=== PATIENT | female | born 1970 | race African-American/Black ===

== ENCOUNTER 2019-02-22 17:22 | Inpatient (IN) | payer MEDICAID, OTHER ==
[~2019-02-22] VITALS: Ht 160 cm; Wt 87.5 kg
[2019-02-22 17:38] VITALS: BP 157/98
[2019-02-22 18:24] LABS: BASOPHILS % (AUTO) 0.8 % (0.0-2.0); EOSINOPHILS # (AUTO) 0.3 K/uL (0-0.4); EOSINOPHILS % (AUTO) 5.3 % (0.0-4.0); HEMATOCRIT 36.9 % (36-48); HEMOGLOBIN 11.8 g/dL (12.0-16.0); LYMPHOCYTES % (AUTO) 32.7 % (20.5-51.1); MEAN CORPUSCULAR HEMOGLOBIN 28 pg (27-31); MEAN CORPUSCULAR HGB CONC 32 g/dL (33-37); MEAN CORPUSCULAR VOLUME 86.2 fL (80-94); MONOCYTES # (AUTO) 0.6 K/uL (0.8-1.0); MONOCYTES % (AUTO) 9.6 % (1.7-9.3); NEUTROPHILS # (AUTO) 3.2 K/uL (1.8-7.7); NEUTROPHILS % (AUTO) 51.6 % (42.2-75.2); PLATELET COUNT (AUTO) 304 K/uL (140-450); RED BLOOD CELL COUNT(AUTO) 4.27 MIL/uL (4.20-5.40); WHITE BLOOD COUNT (AUTO) 6.2 K/uL (4.8-10.8)
[2019-02-22 18:40] LABS: ALBUMIN 3.3 g/dL (3.4-5.0); ANION GAP 14.9 (8-16); CARBON DIOXIDE 27.2 mmol/L (21-32); CREATININE 1.1 mg/dL (0.6-1.3); POTASSIUM 4.1 mmol/L (3.5-5.1); TOTAL BILIRUBIN 0.1 mg/dL (0.0-1.0)
--- NOTE | 2019-02-22 19:38 | NUR ---
PT AMBULATED TO BED #11 Addendum: 02/22/19 at 1938 by [email or web address] PT AMBULATED TO BED #12
--- NOTE | 2019-02-22 19:49 | NUR ---
FIRST CONTACT WITH PATIENT PATIENT AMBULATED TO BED 12, WTIH STEADY GAIT, C/O ABD PAIN X 1 WEEK, +N/V NO DIARRHEA; PATIENT STATES "PAIN IS EPIGASTRIC REGION BUT DOES NOT BURN" PATIENT STATES SHE HAS HX OF FIBROIDS REMOVED AT [facility], [place] 07/2018, FROM UTERUS AND CHOLECYSTECTOMY 3-4 YEARS AGO. PATIENT GCS 15, AAOX4, NO ACUTE DISTRESS NOTED, WILL CONTINUE TO MONITOR
[2019-02-22 20:13] LABS: APPEARANCE,URINE CLEAR (CLEAR); BILIRUBIN,URINE NEGATIVE (NEGATIVE); BLOOD, URINE NEGATIVE (NEGATIVE); COLOR,URINE YELLOW (YELLOW); LEUKOCYTE ESTERASE ,URINE NEGATIVE (NEGATIVE); NITRITE, URINE NEGATIVE (NEGATIVE); UGLUCOSE NEGATIVE (NEGATIVE)
[2019-02-22] MEDS ORDERED: LIDOCAINE VISCOUS 2% 20 ML UDC PO ONE (21:40)
[2019-02-22] MEDS ORDERED: ALUMINUM HYD/MAG/SIMETHICONE 30 ML UDC PO ONE (21:40)
--- NOTE | 2019-02-22 21:59 | NUR ---
RT AT BEDSIDE
--- NOTE | 2019-02-22 23:01 | NUR ---
PATIENT LEFT FOR CT
--- NOTE | 2019-02-23 00:15 | NUR ---
PATIENT CURRENTLY RESTING IN GURNEY, IN POSITION OF COMFORT. PATIENT GCS 15, AAOX4, BREATHING IS EVEN AND UNLABORED, EQUAL RISE AND FALL OF CHEST, NO ACUTE DISTRESS NOTED. PATIENT UPDATED WITH PLAN OF CARE, WILL CONTINUE TO MONITOR
--- NOTE | 2019-02-23 00:20 | NUR ---
SPOKE TO KIRT FARIAS TO ADMIT FOR OBSERVATION
[2019-02-23] MEDS ORDERED: MORPHINE SULFATE 2 MG/ML SYR IVP PRN ×2 (00:45→01:45)
[2019-02-23] MEDS ORDERED: HYDROcodone/APAP 7.5/325 MG 1 TAB PO PRN (00:45)
[2019-02-23] MEDS ORDERED: ACETAMINOPHEN 325 MG TAB PO PRN (00:45)
[2019-02-23] MEDS ORDERED: ONDANSETRON 4 MG/2 ML VIAL IM/IVP PRN (00:45)
[2019-02-23] MEDS ORDERED: DOCUSATE SODIUM 100 MG GELCAP PO PRN (00:45)
[2019-02-23] MEDS ORDERED: DEXT 5% /NACL 0.9% 1,000 ML IV ONE (00:50)
[2019-02-23 01:21] LABS: BARBITURATE, URINE NEG. ng/ml (NEG <=200); BENZODIAZEPINE, URINE NEG. ng/mL (NEG <=200); CANNABINOID, URINE NEG. ng/mL (NEG <=50); COCAINE, URINE NEG. ng/mL (NEG <=300); OPIATE, URINE POS. ng/mL (NEG <=2000); PHENCYCLIDINE SCREEN,URINE NEG. ng/mL (NEG <=25)
[2019-02-23] MEDS ORDERED: KETOROLAC 15 MG/ML VIAL IVP ONE (01:40)
[2019-02-23 01:50] LABS: PROTHROMBIN TIME 9.6 secs (10.8-13.4)
--- NOTE | 2019-02-23 01:50 | NUR ---
PT ARRIVED IN UNIT VIA WHEELCHAIR, PT ABLE TO AMBULATE TO BED, TOLERATED WELL, NO DISTRESS NOTED, RECEIVED BEDSIDE REPORT FROM ED NURSE QUANG RN, PT STABLE, IV TO L HAND 22G PATENT, INTACT, SL, DATED, V/S TAKEN, WNL, ORIENT PT TO BED, CALL LIGHT AND ROOM, PT STATED UNDERSTANDING, MRSA SWAB TAKEN, INITIAL ASSESSMENT DONE, ALL SAFETY PRECAUTION MET, CALL LIGHT WITHIN REACH, WILL CONTINUE TO MONITOR.
--- NOTE | 2019-02-23 01:55 | NUR ---
Patient will be admitted to care of [facility]. Admited to MS. Will go to room 123A. Belongings list completed. Report to JAYA FITZPATRICK.
[2019-02-23 01:57] LABS: CHOL/HDL RATIO 2.8 (1-4.5); FREE T4 (FREE THYROXINE) 0.88 ng/dL (0.76-1.46); MAGNESIUM 2.1 mg/dL (1.8-2.4); PHOSPHORUS 3.2 mg/dL (2.5-4.9)
[2019-02-23 02:00] VITALS: BP 147/97
--- NOTE | 2019-02-23 02:12 | NUR ---
PT C/O PAIN, TORADOL ORDERED ADMINISTERED, PT TOLERATED WELL, IVF D5NS STARTED AT 140ML/HR, INFUSING WELL, NO DISTRESS NOTED, CALL LIGHT WITHIN REACH, WILL CONTINUE TO MONITOR.
--- NOTE | 2019-02-23 04:04 | NUR ---
CHECKED ON PT, PT SLEEPING, NO DISTRESS NOTED, CALL LIGHT WITHIN REACH, WILL CONTINUE TO MONITOR.
--- NOTE | 2019-02-23 07:12 | NUR ---
ENDORSED PT TO DAY SHIFT NURSE TRACEY FITZPATRICK, PT STABLE, NO DISTRESS NOTED, CALL LIGHT WITHIN REACH.
--- NOTE | 2019-02-23 07:15 | NUR ---
RECEIVED PT FROM HEALTH TECH NURSE, JAYA , PT IS AWAKE AND LYING ON THE BED, WITH SIDE RAILS UP AND CALL LIGHT WITHIN REACH, PT HAS AN IV LINE ON THE LEFT HAND G. 22 WITH D5NS INFUSING AT 140ML. HR, PT IS ON OBSERVATION AND WAS PLACED ON NPO EXCEPT MEDS, PT VERBALIZED A PAIN RATE OF 9/10 AND SAID THAT THE PAIN MEDICATIONS SHE RECEIVED DID NOT HELP AT ALL WITH THE PAIN, WILL MEDICATE AND MONITOR PT.
[2019-02-23 07:34] LABS: ANION GAP 12.8 (8-16); CARBON DIOXIDE 24.9 mmol/L (21-32); CREATININE 0.9 mg/dL (0.6-1.3); POTASSIUM 3.7 mmol/L (3.5-5.1)
[2019-02-23 07:40] LABS: BASOPHILS % (AUTO) 0.7 % (0.0-2.0); EOSINOPHILS # (AUTO) 0.3 K/uL (0-0.4); EOSINOPHILS % (AUTO) 6.2 % (0.0-4.0); HEMATOCRIT 35.3 % (36-48); HEMOGLOBIN 11.5 g/dL (12.0-16.0); LYMPHOCYTES # (AUTO) 1.7 K/uL (2.5-16.5); LYMPHOCYTES % (AUTO) 35.9 % (20.5-51.1); MEAN CORPUSCULAR HEMOGLOBIN 28 pg (27-31); MEAN CORPUSCULAR HGB CONC 33 g/dL (33-37); MEAN CORPUSCULAR VOLUME 86.7 fL (80-94); MONOCYTES # (AUTO) 0.5 K/uL (0.8-1.0); MONOCYTES % (AUTO) 11.4 % (1.7-9.3); NEUTROPHILS # (AUTO) 2.2 K/uL (1.8-7.7); NEUTROPHILS % (AUTO) 45.8 % (42.2-75.2); PLATELET COUNT (AUTO) 283 K/uL (140-450); RED BLOOD CELL COUNT(AUTO) 4.07 MIL/uL (4.20-5.40); WHITE BLOOD COUNT (AUTO) 4.7 K/uL (4.8-10.8)
[2019-02-23 08:00] VITALS: BP 11/106
--- NOTE | 2019-02-23 08:23 | NUR ---
PATIENT HAS BEEN SCREENED AND CATEGORIZED MODERATE NUTRITION RISK. PATIENT WILL BE SEEN WITHIN 3-5 DAYS OF ADMISSION. 02/26/[address]
[2019-02-23] MEDS ORDERED: HYDROCHLOROTHIAZIDE 25 MG TAB PO SCH (09:00)
--- NOTE | 2019-02-23 09:31 | NUR ---
IVF WAS FINISHED NOW.
--- NOTE | 2019-02-23 09:35 | NUR ---
ANOTHER BAG IG D5 NS IVF WAS STARTED TO PT NOW.
[2019-02-23] MEDS: amLODIPine 5 MG TAB PO SCH (09:40)
--- NOTE | 2019-02-23 09:45 | NUR ---
PT IS AWAKE AND VITAL SIGNS CHECKED, BP IS 147/101, PULSE IS 92, O2 SATURATION IS 98%, ORAL MEDICATIONS WERE GIVEN AND PT TOLERATED IT, PT VERBALIZED A PAIN RATE OF 10/10 AND PAIN MEDICATION WAS ALSO GIVEN. WILL RE-ASSESS AND MONITOR PT.
[2019-02-23] MEDS ORDERED: SIMETHICONE 80 MG TAB.CHEW PO SCH (10:52)
--- NOTE | 2019-02-23 11:59 | NUR ---
PT IS AWAKE AND LYING ON THE BED, ORAL MEDICATION WAS GIVEN AND PT TOLERATED IT. NO SIGN OF DISTRESS NOTED AND WILL MONITOR PT.
[2019-02-23] MEDS: DEXT 5% / NACL 0.45% 1,000 ML IV SCH ×2 (12:47→18:28)
[2019-02-23] MEDS: MORPHINE SULFATE 2 MG/ML SYR IVP PRN (14:29)
--- NOTE | 2019-02-23 14:39 | NUR ---
PT IS CRYING AND IS IN PAIN OF A 10/10, VITAL SIGNS CHECKED AND BP IS 160/105, PULSE IS 100 AND O2 SATURATION IS 100% , PAIN MEDICATION WAS GIVEN VIA IV PUSH AND PT TOLERATED IT, WILL RE-ASSESS PAIN .
--- NOTE | 2019-02-23 15:13 | NUR ---
PT IS AWAKE AND VERBALIZED ITCHINESS AND ASKED FOR BENADRYL, MEDICATION WAS GIVEN AND PT TOLERATED IT. NO SIGN OF DISTRESS NOTED AND WILL CONTINUE TO MONITOR PT.
[2019-02-23 16:00] VITALS: BP 156/108
[2019-02-23] MEDS: KETOROLAC 15 MG/ML VIAL IVP PRN (18:17)
--- NOTE | 2019-02-23 18:26 | NUR ---
PT'S IVF OD D5NS WAS FINISHED NOW, 990 ML WAS INFUSED TO PT.
--- NOTE | 2019-02-23 18:28 | NUR ---
PT WAS STARTED ON IVF OF D5 1/2 NS AT A RATE OF 150ML/HR.
--- NOTE | 2019-02-23 19:10 | NUR ---
DR. TIRADO WAS AT PT'S BEDSIDE, ROUNDS DONE. FOR EGD
--- NOTE | 2019-02-23 19:15 | NUR ---
ENDORSED PT TO ESCROW ASSISTANT NURSEJOHN FOR CONTINUITY OF CARE, PT IS LYING ON THE BED AND IS STABLE AT THIS TIME.
--- NOTE | 2019-02-23 19:16 | NUR ---
RECEIVED PT FROM AM SHIFT NURSE, PT IS AWAKE, A ,0 X 4 AND SITTING ON THE BED, PT HAS AN IV LINE ON THE LEFT HAND G. 22 WITH D5NS INFUSING AT 140ML. HR, PT IS ON OBSERVATION AND WAS PLACED ON NPO EXCEPT MEDS, WITH SIDE RAILS UP AND CALL LIGHT WITHIN REACH.
--- NOTE | 2019-02-23 19:20 | NUR ---
ADJUSTED RATE OF CURRENT IVF TO 70 ML/HR ORDERED
--- NOTE | 2019-02-23 20:09 | NUR ---
INFORMED DR. VELÁZQUEZ THAT BP 167/96, HR 84 WILL CONTINUE TO MONITOR AWAITING ORDERS
[2019-02-23] MEDS ORDERED: traZODone 50 MG TAB PO SCH (21:00)
[2019-02-23] MEDS: AMITRIPTYLINE 25 MG TAB PO SCH (21:08)
[2019-02-23] MEDS: LACTULOSE 20 GM/30 ML UDC PO SCH (21:08)
--- NOTE | 2019-02-23 21:08 | NUR ---
MEDICATED PT WITH MEDS ORDERED. WILL CONTINUE TO MONITOR FOR EMOTIONAL LABILITY.
--- NOTE | 2019-02-23 21:18 | NUR ---
EGD CONSENT SECURED FROM PATIENT, SIGNED. SIGNED BY DR. VELÁZQUEZ
[2019-02-24] VITALS: BP 167/96
--- NOTE | 2019-02-24 | NUR ---
PT BP WENT DOWN TO 139/ 88, HR 88, WILL CONTINUE TO MONITOR
--- NOTE | 2019-02-24 01:58 | NUR ---
FREQUENT ROUNDING DONE, PT SLEEPING NOW, NO EPISODES OF CRYING AT THIS TIME
--- NOTE | 2019-02-24 04:05 | NUR ---
IVF CHANGED Addendum: 02/24/19 at 0406 by Jenny Graves RN IVF CHANGED, END TIME OF 0404 AM ADMINISTERED TOTAL 800 MG.
[2019-02-24] MEDS: DEXT 5% / NACL 0.45% 1,000 ML IV SCH ×2 (04:08→14:22)
[2019-02-24] MEDS: KETOROLAC 15 MG/ML VIAL IVP PRN (05:22)
--- NOTE | 2019-02-24 06:58 | NUR ---
PT AWAKE, IN BED. PT IN STABLE CONDITION, WILL ENDORSE FOR CONTINUITY OF CARE Addendum: 02/24/19 at 0659 by Jenny Graves RN FOR EGD TODAY
--- NOTE | 2019-02-24 07:20 | NUR ---
RECEIVED PT FROM DIABETOLOGIST NURSEJOHN, PT IS AWAKE AND LYING ON THE BED WITH SIDE RAILS UP AND CALL LIGHT WITHIN REACH, PT HAS AN IV LINE ON THE LEFT HAND G. 22 WITH D51/2 NS INFUSING AT 70ML/HR, INTACT. PT IS SCHEDULED FOR AN EGD TODAY, SCHEDULE NOT POSTED YET ON OR DESK TOP. NO SIGN OF DISTRESS NOTED AND WILL CONTINUE TO MONITOR PT.
[2019-02-24 08:00] VITALS: BP 151/105
--- NOTE | 2019-02-24 08:00 | NUR ---
PT IS AWAKE AND VITAL SIGNS CHECKED DONE, BP IS 151/105,PULSE IS 83, O2 SATURATION IS 100%, TEMPERATURE IS 97.4 and RESPIRATION IS EVEN AT A RATE OF 18/MIN. NO SIGN OF DISTRESS NOTED AND WILL MONITOR PT.
[2019-02-24] MEDS ORDERED: HYDROCHLOROTHIAZIDE 25 MG TAB PO SCH (09:00)
[2019-02-24] MEDS: LACTULOSE 20 GM/30 ML UDC PO SCH ×3 (10:00→18:12)
[2019-02-24] MEDS: amLODIPine 5 MG TAB PO SCH (10:01)
[2019-02-24] MEDS: SENNA 8.6 MG TAB PO SCH ×3 (10:01→18:13)
[2019-02-24] MEDS: HYDROcodone/APAP 7.5/325 MG 1 TAB PO PRN (10:03)
--- NOTE | 2019-02-24 10:03 | NUR ---
PT IS AWAKE AND VERBALIZED A PAIN RATE OF 7/10, VITAL SIGNS CHECKED AND BP IS 135/88, PULSE IS83, O2 SATURATION IS 98%, ORAL MEDICATIONS WERE GIVEN AND PT TOLERATED LIT. NO SIGN OF DISTRESS NOTED AND WILL MONITOR R PT.
--- NOTE | 2019-02-24 12:00 | NUR ---
PT IS OFF THE UNIT NOW FOR EGD
[2019-02-24] MEDS ORDERED: fentaNYL 0.05 MG/ML VIAL ONE (12:05)
[2019-02-24] MEDS ORDERED: MIDAZOLAM 2 MG/2 ML VIAL ONE (12:06)
[2019-02-24] MEDS ORDERED: diphenhydrAMINE 50 MG/ML VIAL ONE (12:06)
[2019-02-24] MEDS ORDERED: MAGNESIUM CITRATE 300 ML BTL PO SCH (12:38)
--- NOTE | 2019-02-24 12:40 | NUR ---
PT BACK TO ROOM NOW FROM EGD PROCEDURE.
[2019-02-24] MEDS ORDERED: fentaNYL 0.05 MG/ML VIAL IVP ONE (13:05)
[2019-02-24] MEDS ORDERED: MIDAZOLAM 2 MG/2 ML VIAL IVP ONE (13:05)
[2019-02-24] MEDS ORDERED: FUROSEMIDE 20 MG/2 ML VIAL IVP SCH (13:30)
--- NOTE | 2019-02-24 14:22 | NUR ---
PT'S IVF OF D5 1/2 NS WAS ENDED AND PT WAS STARTED ON A NEW BAG OF D51/2 NS AT A RATE OF 20ML/HR NOW
[2019-02-24 14:25] LABS: BASOPHILS % (AUTO) 0.7 % (0.0-2.0); EOSINOPHILS # (AUTO) 0.3 K/uL (0-0.4); EOSINOPHILS % (AUTO) 5.3 % (0.0-4.0); HEMATOCRIT 35.8 % (36-48); HEMOGLOBIN 11.8 g/dL (12.0-16.0); LYMPHOCYTES # (AUTO) 1.6 K/uL (2.5-16.5); LYMPHOCYTES % (AUTO) 27.4 % (20.5-51.1); MEAN CORPUSCULAR HEMOGLOBIN 28 pg (27-31); MEAN CORPUSCULAR HGB CONC 33 g/dL (33-37); MEAN CORPUSCULAR VOLUME 85.5 fL (80-94); MONOCYTES # (AUTO) 0.4 K/uL (0.8-1.0); MONOCYTES % (AUTO) 7.8 % (1.7-9.3); NEUTROPHILS # (AUTO) 3.4 K/uL (1.8-7.7); NEUTROPHILS % (AUTO) 58.8 % (42.2-75.2); PLATELET COUNT (AUTO) 288 K/uL (140-450); RED BLOOD CELL COUNT(AUTO) 4.19 MIL/uL (4.20-5.40); RED CELL DISTRIBUTION WIDTH 14.9 % (11.6-13.7); WHITE BLOOD COUNT (AUTO) 5.8 K/uL (4.8-10.8)
[2019-02-24 14:41] LABS: ANION GAP 13.3 (8-16); CARBON DIOXIDE 23.2 mmol/L (21-32); CREATININE 0.8 mg/dL (0.6-1.3); POTASSIUM 3.5 mmol/L (3.5-5.1)
[2019-02-24 14:45] LABS: MAGNESIUM 2.2 mg/dL (1.8-2.4)
[2019-02-24] MEDS ORDERED: amLODIPine 5 MG TAB PO SCH (15:00)
--- NOTE | 2019-02-24 15:15 | NUR ---
PT IS AWAKE AND DAUGHTERS ON THE BEDSIDE, ORAL AND IV MEDICATIONS WERE GIVEN AND PT TOLERATED IT. NO SIGN OF DISTRESS NOTED AND WILL MONITOR PT.
--- NOTE | 2019-02-24 15:22 | NUR ---
PT IS HAVING THE FEELING OF NAUSEA AND VOMITED ONCE, ASKED FOR ZOFRAN AND WAS GIVEN VIA IV PUSH. WILL MONITOR PT.
[2019-02-24 16:00] VITALS: BP 124/84
[2019-02-24] MEDS ORDERED: metroNIDAZOLE 500 MG TAB PO SCH (17:00)
[2019-02-24] MEDS ORDERED: BISMUTH SUBSALICYLATE 15 ML UDBTL PO SCH (17:00)
[2019-02-24] MEDS ORDERED: TETRACYCLINE 250 MG PO SCH (17:00)
--- NOTE | 2019-02-24 19:15 | NUR ---
ENDORSED PT TO PARTS DELIVERY DRIVER NURSEJOHN FOR CONTINUITY OF CARE. PT IS STABLE AT THIS TIME.
--- NOTE | 2019-02-24 19:16 | NUR ---
RECEIVED PT FROM AM SHIFT. PT AWAKE, ALERT, O X 4. PT LYING IN BED.WITH IV LINE ON THE LEFT HAND G. 22 WITH D5 1/2 NS INFUSING AT 70ML/HR, INTACT. NO SIGNS OF DISTRESS NOTED. WILL CONTINUE TO MONITOR PT AND CALL LIGHT WITHIN REACH.
[2019-02-24 20:00] VITALS: BP 114/84
[2019-02-24] MEDS: metroNIDAZOLE 500 MG TAB PO SCH (20:38)
[2019-02-24] MEDS: AMOXICILLIN 500 MG CAP PO SCH (20:38)
[2019-02-24] MEDS: MORPHINE SULFATE 2 MG/ML SYR IVP PRN (20:38)
--- NOTE | 2019-02-24 20:38 | NUR ---
PT C/O 08/26 PAIN ON ABDOMEN AND WELL CRAMPING, INFORMED HER THAT WE GAVE HER THIS AM STOOL SOFTENERS AND MIGHT BE THE CAUSE OF THE CRAMPLING PAIN. PT UNDERSTOOD,THAT SHE HAS TO GO TO THE BATHROOM TO RELIEVE THE CRAMPING PAIN.
[2019-02-24] MEDS: PANTOPRAZOLE 40 MG TABEC PO SCH (20:39)
[2019-02-24] MEDS: CLARITHROMYCIN 500 MG TAB PO SCH (20:39)
[2019-02-24] MEDS: AMITRIPTYLINE 25 MG TAB PO SCH (20:39)
[2019-02-24] MEDS ORDERED: CLARITHROMYCIN 500 MG TAB PO SCH (21:00)
--- NOTE | 2019-02-24 22:00 | NUR ---
PT WENT TO THE BATHROOM, PASSING OUT GAS ONLY. NO BM YET NOTED.
--- NOTE | 2019-02-24 23:05 | NUR ---
FREQUENT ROUNDING DONE PT IN BED TRYING TO SLEEP, NO DISTRESS NOTED AT THIS TIME.
--- NOTE | 2019-02-24 23:48 | NUR ---
CHECKED ON PT, W/ SOME BM X 1. CLEANED.
--- NOTE | 2019-02-25 03:31 | NUR ---
PT WENT TO BATHROOM, HAD ANOTHER BM,MINIMAL AMOUNT, WET.
--- NOTE | 2019-02-25 03:45 | NUR ---
PT WENT TO BATHROOM BM NOTED MODERATE IN AMOUNT, YELLOWISH, LIQUID STOOL.
[2019-02-25 04:00] VITALS: BP 113/63
[2019-02-25] MEDS: HYDROcodone/APAP 7.5/325 MG 1 TAB PO PRN (04:58)
--- NOTE | 2019-02-25 06:23 | NUR ---
PT IV INFILTRATED, INSERTED A NEW LINE ON RIGHT HAND G 24, PATENT AND INTACT
[2019-02-25] MEDS ORDERED: AMOX500C25 PO (06:33)
[2019-02-25] MEDS ORDERED: METR500T1 PO (06:33)
[2019-02-25] MEDS ORDERED: AMLO5TAB PO (06:33)
[2019-02-25] MEDS ORDERED: LACT1.4C PO (06:33)
[2019-02-25] MEDS ORDERED: PANT40EC28 PO (06:33)
[2019-02-25] MEDS ORDERED: CLAR500T PO (06:33)
[2019-02-25] MEDS ORDERED: ORE25 PO (06:33)
[2019-02-25 06:47] LABS: ANION GAP 13.2 (8-16); CARBON DIOXIDE 25.2 mmol/L (21-32); CREATININE 0.8 mg/dL (0.6-1.3); POTASSIUM 3.4 mmol/L (3.5-5.1)
[2019-02-25 06:55] LABS: MAGNESIUM 2.4 mg/dL (1.8-2.4); PHOSPHORUS 3.3 mg/dL (2.5-4.9)
--- NOTE | 2019-02-25 07:18 | NUR ---
ENDORSED TO NEXT SHIFT FOR CONTINUITY OF CARE. PT IN STABLE CONDITION AT THIS TIME.
[2019-02-25 08:00] VITALS: BP 111/80
[2019-02-25] MEDS: MORPHINE SULFATE 2 MG/ML SYR IVP PRN (08:45)
[2019-02-25] MEDS: LACTULOSE 20 GM/30 ML UDC PO SCH (08:45)
[2019-02-25] MEDS: SENNA 8.6 MG TAB PO SCH ×2 (08:45→13:00)
[2019-02-25] MEDS: CLARITHROMYCIN 500 MG TAB PO SCH (08:46)
[2019-02-25] MEDS: AMOXICILLIN 500 MG CAP PO SCH (08:46)
[2019-02-25] MEDS: metroNIDAZOLE 500 MG TAB PO SCH (08:46)
[2019-02-25] MEDS: PANTOPRAZOLE 40 MG TABEC PO SCH (08:47)
--- NOTE | 2019-02-25 08:53 | NUR ---
ADMINISTERED MEDS TO PT ORDERED. ASKING PAIN MEDS FOR PAIN 8/10. TOLERATED WELL. NO SIGN OF DISTRESS NOTED. ASKING FOR THE FLU SHOT AT TIME OF DISCHARGE AND HER CONTROL PILL. MD AWARE, WILL PRESCRIBE HER PRESCRIPTION AT THE TIME OF DISCHARGE. WILL CONTINUE TO MONITOR PT.
[2019-02-25] MEDS ORDERED: amLODIPine 5 MG TAB PO SCH (09:00)
[2019-02-25] MEDS ORDERED: INFLUENZA VIRUS VACCINE QUAD 0.5 ML SYR IMVAC PRN (09:10)
[2019-02-25 09:16] LABS: BASOPHILS % (AUTO) 0.5 % (0.0-2.0); EOSINOPHILS # (AUTO) 0.3 K/uL (0-0.4); EOSINOPHILS % (AUTO) 4.9 % (0.0-4.0); HEMATOCRIT 36.9 % (36-48); LYMPHOCYTES # (AUTO) 1.4 K/uL (2.5-16.5); LYMPHOCYTES % (AUTO) 26.9 % (20.5-51.1); MEAN CORPUSCULAR HEMOGLOBIN 28 pg (27-31); MEAN CORPUSCULAR HGB CONC 33 g/dL (33-37); MEAN CORPUSCULAR VOLUME 86.3 fL (80-94); MONOCYTES # (AUTO) 0.5 K/uL (0.8-1.0); MONOCYTES % (AUTO) 9.5 % (1.7-9.3); NEUTROPHILS # (AUTO) 3.1 K/uL (1.8-7.7); NEUTROPHILS % (AUTO) 58.2 % (42.2-75.2); PLATELET COUNT (AUTO) 304 K/uL (140-450); RED BLOOD CELL COUNT(AUTO) 4.28 MIL/uL (4.20-5.40); RED CELL DISTRIBUTION WIDTH 15.1 % (11.6-13.7); WHITE BLOOD COUNT (AUTO) 5.3 K/uL (4.8-10.8)
--- NOTE | 2019-02-25 12:30 | NUR ---
CHECKED ON PT. EATING HER LUNCH AT THIS TIME. STATES NOT SURE ABOUT THE FLU SHOT THAT SHE RECEIVED IN LAST YEAR. INFORMED HER THAT WILL ADMINISTERED FLU SHOT BEFORE DISCHARGE. DENIES ANY PAIN AT THIS TIME. INFORMED HER WILL WORK ON HER DISCHARGE PAPER. PT TO BE PICKED UP BY THE FAMILY MEMBER.
--- NOTE | 2019-02-25 14:00 | NUR ---
DISCONTINUED PTS IV AND GAVE ALL THE DISCHARGE PAPER TO THE PATIENT. PT VERBALIZED UNDERSTANDING OF THE DISCHARGE TEACHING. WILL FOLLOW UP WITH MD STATES IN THE DISCHARGE REPORT. PT TOOK ALL HER BELONGINGS AND DISCHARGE PACKET . WENT HOME WITH DAUGHTER.
== END 2019-02-25 14:00 | disposition home or self-care (01) | DRG 241 ==
LOC: MED 17:22 → MTU 02-23 01:21 → OBSVTOIN 02-23 16:02
PROVIDERS: ADMIT General Practice; ATTEND General Practice
PROC: 0DB68ZX Excision of Stomach, Via Natural or Artificial Opening Endoscopic, Diagnostic (ICD-10-PCS; principal; 2019-02-24 12:40)
DX: K25.9 Gastric ulcer, unspecified as acute or chronic, without hemorrhage or perforation (principal); K85.90 Acute pancreatitis without necrosis or infection, unspecified; B96.81 Helicobacter pylori [H. pylori] as the cause of diseases classified elsewhere; E78.5 Hyperlipidemia, unspecified; N94.5 Secondary dysmenorrhea; D25.9 Leiomyoma of uterus, unspecified; G43.909 Migraine, unspecified, not intractable, without status migrainosus; I10 Essential (primary) hypertension; K59.09 Other constipation; N94.6 Dysmenorrhea, unspecified; Z90.49 Acquired absence of other specified parts of digestive tract
CPT/HCPCS: 43239; 99285; G0378; 36415; 71045; 76856; 80048; 80053; 80305; 81003; 81025; 82140; 82150; 83036; 83605; 83690; 83735; 83880; 84100; 84439; 84484; 85025; 85610; 85730; 86677; 87081; 93005; G0482; J1200; J1885; J1940; J2250; J2270; J2405; J3010; J7030; J7042; Q0092; Q0163

== ENCOUNTER 2019-09-29 09:49 | Emergency (ER) | payer OTHER ==
[~2019-09-29] VITALS: Ht 160 cm; Wt 68.0 kg
[~2019-09-29 09:49] MED LIST: AMLO5TAB PO; AMOX500C25 PO; CLAR500T PO; LACT1.4C PO; METR500T1 PO; ORE25 PO; PANT40EC28 PO
[2019-09-29 09:54] VITALS: BP 150/98
--- NOTE | 2019-09-29 10:12 | NUR ---
48/F BIBS CAME IN COMPLAINING OF ABDOMINAL PAIN AND H/A FOR 2X WEEKS. HX OF H/A. PATIENT DENIES N/V NO DIZZINESS, STATES SHE "CANT STAND LIGHT" NO FLASHES ALOX4. PAIN IS 8/10 ON SIDE TEMPLES. EPIGASTRIC PAIN REPORTED 8/10 X2 WEEKS, WORSENED SINCE 09/27/19, BSX4 ACTIVE, TENDER ON PALPATION, FLATUS PRESENT, ABDOMEN IS DISTENDED, PT. REPORTS DIARRHEA SINCE 09/28/19. SHE STATES SHE ATE SHRIMPS AND SEAFOOD COOKED AT HOME AND CONSUMED ALCOHOL SINCE ONSET. PMHX: ASTHMA, HTN, STOMACH ULCERS RX: AMLODIPINE
[2019-09-29] MEDS ORDERED: PROCHLORPERAZINE 10 MG/2 ML VIAL IM ONE (10:15)
[2019-09-29] MEDS ORDERED: ALUMINUM HYD/MAG/SIMETHICONE 30 ML UDC PO ONE (10:15)
[2019-09-29] MEDS ORDERED: KETOROLAC 60 MG/2 ML VIAL IM ONE (10:15)
[2019-09-29] MEDS ORDERED: FAMOTIDINE 20 MG TAB PO ONE (10:15)
[2019-09-29] MEDS ORDERED: MORPHINE SULFATE 4 MG/ML SYR IM ONE (11:25)
--- NOTE | 2019-09-29 11:50 | NUR ---
RESTING WITH EYES CLOSED
[2019-09-29] MEDS ORDERED: LIDOCAINE MPF 1% 10 MG/ML VIAL INJ ONE ×2 (13:10→13:20)
--- NOTE | 2019-09-29 13:26 | NUR ---
DR AVILES AT BEDSIDE.
--- NOTE | 2019-09-29 13:37 | NUR ---
PT RESTING IN BED WITH EYES CLOSED. VISIBLE RISE AND FALL OF THE CHEST. PT ON O2 MONITOR W/ O2 SAT OF 98%. VSS. WILL CONTINUE TO MONITOR.
--- NOTE | 2019-09-29 14:31 | NUR ---
Patient discharged with v/s stable. Written and verbal after care instructions given and explained. Patient alert, oriented and verbalized understanding of instructions. Ambulatory with steady gait. All questions addressed prior to discharge. ID band removed. Patient advised to follow up with PMD. Rx of COMPAZINE, AMLODIPINE, NORCO given. Patient educated on indication of medication including possible reaction and side effects. Opportunity to ask questions provided and answered.
[2019-09-29 14:32] VITALS: BP 144/97
== END 2019-09-29 14:31 | disposition home or self-care (01) ==
LOC: MED 09:49
DX: G43.909 Migraine, unspecified, not intractable, without status migrainosus (principal); G44.209 Tension-type headache, unspecified, not intractable; J45.909 Unspecified asthma, uncomplicated; I10 Essential (primary) hypertension; Z90.49 Acquired absence of other specified parts of digestive tract; Z98.890 Other specified postprocedural states; Z79.899 Other long term (current) drug therapy; Z79.2 Long term (current) use of antibiotics
CPT/HCPCS: 20553; 96372; 99284; J0780; J1885; J2001; J2270

== ENCOUNTER 2019-11-24 01:47 | Emergency (ER) | payer MEDICAID, OTHER ==
[~2019-11-24] VITALS: Ht 157.5 cm; Wt 79.4 kg
[2019-11-24 01:51] VITALS: BP 128/72
[2019-11-24] MEDS ORDERED: METOCLOPRAMIDE 10 MG/2 ML INJ VIAL IVP ONE (02:05)
[2019-11-24] MEDS ORDERED: NACL 0.9% 1,000 ML IV ONE (02:05)
[2019-11-24] MEDS ORDERED: diphenhydrAMINE 50 MG/ML VIAL IVP ONE (02:05)
[2019-11-24 02:36] LABS: APPEARANCE,URINE CLEAR (CLEAR); BLOOD, URINE 2+ (NEGATIVE); COLOR,URINE YELLOW (YELLOW); UGLUCOSE NEGATIVE (NEGATIVE)
[2019-11-24 02:37] LABS: BILIRUBIN,URINE NEGATIVE (NEGATIVE); LEUKOCYTE ESTERASE ,URINE NEGATIVE (NEGATIVE); NITRITE, URINE NEGATIVE (NEGATIVE); RBC,URINE 0-5 /HPF (0-5)
[2019-11-24 02:38] LABS: WBC,URINE NONE SEEN /HPF (0-5)
[2019-11-24 04:10] VITALS: BP 128/72
== END 2019-11-24 04:10 | disposition home or self-care (01) ==
LOC: MED 01:47
DX: G43.909 Migraine, unspecified, not intractable, without status migrainosus (principal); R11.2 Nausea with vomiting, unspecified; J45.909 Unspecified asthma, uncomplicated; I10 Essential (primary) hypertension; Z90.49 Acquired absence of other specified parts of digestive tract; Z98.890 Other specified postprocedural states; Z79.899 Other long term (current) drug therapy; Z79.2 Long term (current) use of antibiotics
CPT/HCPCS: 81001; 96361; 96374; 96375; 99283; J1200; J2765; J7030

== ENCOUNTER 2023-12-26 00:05 | Inpatient (IN) | payer MEDICAID ==
[~2023-12-26] VITALS: Ht 160 cm; Wt 79.4 kg
[~2023-12-26 00:05] MED LIST changes: -CLAR500T PO; +CLAR500T99 PO; +HYDR-4004 PO; -ORE25 PO; -PANT40EC28 PO; +PANT40EC56 PO
[2023-12-26 00:10] VITALS: BP 140/90; PULSE 99; RESP 17; TEMP 97.8; O2SAT 100
[2023-12-26 01:04] LABS: BASOPHILS # (AUTO) 0.1 K/uL (0.00-0.22); BASOPHILS % (AUTO) 1.3 % (0.0-2.0); EOSINOPHILS # (AUTO) 0.2 K/uL (0-0.4); EOSINOPHILS % (AUTO) 4.4 % (0.0-4.0); HEMATOCRIT 22.2 % (36-48); LYMPHOCYTES # (AUTO) 2.6 K/uL (2.5-16.5); LYMPHOCYTES % (AUTO) 45.8 % (20.5-51.1); MEAN CORPUSCULAR HEMOGLOBIN 16 pg (27-31); MEAN CORPUSCULAR HGB CONC 28 g/dL (33-37); MONOCYTES # (AUTO) 0.7 K/uL (0.8-1.0); MONOCYTES % (AUTO) 11.9 % (1.7-9.3); NEUTROPHILS % (AUTO) 36.6 % (42.2-75.2); PLATELET COUNT (AUTO) 490 K/uL (140-450); RED BLOOD CELL COUNT(AUTO) 3.97 MIL/uL (4.20-5.40); RED CELL DISTRIBUTION WIDTH 22.1 % (11.6-13.7); WHITE BLOOD COUNT (AUTO) 5.6 K/uL (4.8-10.8)
[2023-12-26 01:07] LABS: HEMOGLOBIN 6.3 g/dL (12.0-16.0)
[2023-12-26 01:10] LABS: ANION GAP 14.6 (8-16); CALCIUM 8.8 mg/dL (8.5-10.1); CARBON DIOXIDE 25.1 mmol/L (21-32); CREATININE 0.9 mg/dL (0.6-1.3); POTASSIUM 3.7 mmol/L (3.5-5.1)
[2023-12-26 01:11] LABS: APPEARANCE,URINE CLEAR (CLEAR); BILIRUBIN,URINE NEGATIVE (NEGATIVE); BLOOD, URINE 3+ (NEGATIVE); COLOR,URINE YELLOW (YELLOW); LEUKOCYTE ESTERASE ,URINE NEGATIVE (NEGATIVE); NITRITE, URINE NEGATIVE (NEGATIVE); PH,URINE 6.5 (5.0-9.0); PROTEIN,URINE NEGATIVE (NEGATIVE); UGLUCOSE NEGATIVE (NEGATIVE); UROBILINOGEN,URINE 0.2 EU/dL (0.2 - 1)
[2023-12-26 01:15] LABS: BACTERIA,URINE 10-30 (MOD) /HPF (None Seen); MUCUS,URINE 1+ /LPF (None Seen); RBC,URINE 11-20 (MOD) /HPF (0-5); SQUAMOUS EPITHELIAL CELL,UR 0-3 (FEW) /LPF (0-3 (FEW))
[2023-12-26] MEDS: DICYCLOMINE HCL LIQUID 20 MG, ALUMINUM HYD/MAG/SIMETHICONE 30 ML, LIDOCAINE VISCOUS 2% ... PO ONE (01:35)
[2023-12-26] MEDS: NACL 0.9% 1,000 ML IV ONE ×2 (01:35→02:05)
[2023-12-26] MEDS: ONDANSETRON 4 MG/2 ML VIAL IVP ONE (01:39)
[2023-12-26] MEDS: HYDROcodone/APAP 5/325 MG 1 TAB TAB PO ONE (02:05)
[2023-12-26 02:15] LABS: ALBUMIN 3.3 g/dL (3.4-5.0); TOTAL BILIRUBIN 0.1 mg/dL (0.0-1.0); TOTAL PROTEIN, SERUM 8.7 g/dL (6.4-8.2)
[2023-12-26] MEDS ORDERED: cefTRIAXone 1,000 MG VIAL ONE (02:58)
[2023-12-26] MEDS ORDERED: MORPHINE SULFATE 2 MG/ML SYR ONE (04:41)
[2023-12-26] MEDS ORDERED: diphenhydrAMINE 50 MG/ML VIAL ONE (04:53)
[2023-12-26] MEDS: diphenhydrAMINE 50 MG/ML VIAL IVP ONE (05:04)
[2023-12-26] MEDS ORDERED: ONDANSETRON 4 MG/2 ML VIAL IVP PRN (05:10)
[2023-12-26] MEDS ORDERED: PANTOPRAZOLE 40 MG INJ VIAL ONE (05:27)
[2023-12-26] MEDS: PANTOPRAZOLE 40 MG INJ VIAL IVP SCH ×2 (05:52→11:47)
[2023-12-26] MEDS: MORPHINE SULFATE 2 MG/ML SYR IVP PRN (05:54)
[2023-12-26 09:37] LABS: BASOPHILS # (AUTO) 0.1 K/uL (0.00-0.22); EOSINOPHILS # (AUTO) 0.4 K/uL (0-0.4); HEMATOCRIT 25.7 % (36-48); HEMOGLOBIN 7.4 g/dL (12.0-16.0); LYMPHOCYTES # (AUTO) 2.9 K/uL (2.5-16.5); LYMPHOCYTES % (AUTO) 36.7 % (20.5-51.1); MEAN CORPUSCULAR HEMOGLOBIN 17 pg (27-31); MEAN CORPUSCULAR HGB CONC 29 g/dL (33-37); MEAN CORPUSCULAR VOLUME 60.3 fL (80-94); MONOCYTES # (AUTO) 0.9 K/uL (0.8-1.0); MONOCYTES % (AUTO) 11.6 % (1.7-9.3); NEUTROPHILS # (AUTO) 3.6 K/uL (1.8-7.7); NEUTROPHILS % (AUTO) 45.7 % (42.2-75.2); PLATELET COUNT (AUTO) 454 K/uL (140-450); RED BLOOD CELL COUNT(AUTO) 4.26 MIL/uL (4.20-5.40); RED CELL DISTRIBUTION WIDTH 26.1 % (11.6-13.7); WHITE BLOOD COUNT (AUTO) 7.9 K/uL (4.8-10.8)
[2023-12-26 10:10] LABS: ALBUMIN 3.1 g/dL (3.4-5.0); ANION GAP 12.5 (8-16); CALCIUM 8.5 mg/dL (8.5-10.1); CARBON DIOXIDE 24.7 mmol/L (21-32); CREATININE 0.8 mg/dL (0.6-1.3); POTASSIUM 4.2 mmol/L (3.5-5.1); TOTAL BILIRUBIN 0.2 mg/dL (0.0-1.0); TOTAL PROTEIN, SERUM 8.1 g/dL (6.4-8.2)
[2023-12-26 11:03] VITALS: PULSE 84; RESP 23; O2SAT 100
[2023-12-26] MEDS: DICYCLOMINE HCL LIQUID 20 MG, ALUMINUM HYD/MAG/SIMETHICONE 30 ML, LIDOCAINE VISCOUS 2% ... PO SCH (11:59)
[2023-12-26 12:00] VITALS: BP 154/92; PULSE 78; PULSE 82; RESP 17; TEMP 98.2; O2SAT 98
[2023-12-26] MEDS: DICYCLOMINE HCL LIQUID 10 MG/5 ML UDC ONE (12:05)
[2023-12-26 15:02] LABS: THYROID STIMULATING HORMONE 3.81 uIU/mL (0.34-3.74)
[2023-12-26 16:00] VITALS: BP 154/92; PULSE 82; PULSE 83; RESP 17; TEMP 98.2; O2SAT 98
[2023-12-26] MEDS: SENNA 8.6 MG TAB PO SCH (17:49)
[2023-12-26] MEDS: LACTULOSE 20 GM/30 ML UDC PO SCH (17:49)
[2023-12-26] MEDS: POLYETHYLENE GLYCOL 17 GM/PKT PO SCH (17:50)
[2023-12-26 20:00] VITALS: PULSE 79; RESP 18; O2SAT 98
[2023-12-26] MEDS: SODIUM FERRIC GLUCONATE 125 MG in NACL 0.9% 100 ML IV SCH (21:23)
[2023-12-26] MEDS: NACL 0.9% 1,000 ML IV SCH (21:45)
[2023-12-27] VITALS (7 sets, daily range): BP systolic 144–171; BP diastolic 86–103; PULSE 72–102; RESP 18; TEMP 97.2–99; O2SAT 96–100
[2023-12-27] MEDS: HYDROmorphone 1 MG/ML AMP IVP PRN (01:46)
[2023-12-27] MEDS: ACETAMINOPHEN 325 MG TAB PO PRN (04:07)
[2023-12-27] MEDS ORDERED: PANTOPRAZOLE 40 MG INJ VIAL IVP SCH (09:00)
[2023-12-27] MEDS: medroxyPROGESTERone 10 MG TAB PO SCH (09:11)
[2023-12-27 10:06] LABS: BASOPHILS % (AUTO) 0.5 % (0.0-2.0); EOSINOPHILS # (AUTO) 0.4 K/uL (0-0.4); EOSINOPHILS % (AUTO) 4.8 % (0.0-4.0); HEMATOCRIT 25.4 % (36-48); HEMOGLOBIN 7.4 g/dL (12.0-16.0); LYMPHOCYTES # (AUTO) 1.4 K/uL (2.5-16.5); LYMPHOCYTES % (AUTO) 16.4 % (20.5-51.1); MEAN CORPUSCULAR HEMOGLOBIN 18 pg (27-31); MEAN CORPUSCULAR HGB CONC 29 g/dL (33-37); MEAN CORPUSCULAR VOLUME 60.5 fL (80-94); MONOCYTES # (AUTO) 0.6 K/uL (0.8-1.0); MONOCYTES % (AUTO) 7.4 % (1.7-9.3); NEUTROPHILS # (AUTO) 5.9 K/uL (1.8-7.7); NEUTROPHILS % (AUTO) 70.9 % (42.2-75.2); PLATELET COUNT (AUTO) 412 K/uL (140-450); RED CELL DISTRIBUTION WIDTH 23.8 % (11.6-13.7); WHITE BLOOD COUNT (AUTO) 8.3 K/uL (4.8-10.8)
[2023-12-27 10:43] LABS: ANION GAP 13.9 (8-16); CALCIUM 8.2 mg/dL (8.5-10.1); CARBON DIOXIDE 24.5 mmol/L (21-32); CREATININE 0.8 mg/dL (0.6-1.3); POTASSIUM 3.4 mmol/L (3.5-5.1); TOTAL BILIRUBIN 0.3 mg/dL (0.0-1.0); TOTAL PROTEIN, SERUM 8.2 g/dL (6.4-8.2)
[2023-12-27 11:16] LABS: PARTIAL THROMBOPLASTIN TIME 27.5 secs (22-35.6); PROTHROMBIN TIME 10.5 secs (10.8-13.4)
[2023-12-27] MEDS: POTASSIUM CHLORIDE 40 MEQ, LIDOCAINE 1% 25 MG in NACL 0.9% 250 ML IV SCH (12:13)
[2023-12-27] MEDS ORDERED: ACETAMINOPHEN 100 ML IV PRN (13:05)
[2023-12-27] MEDS: hydrALAZINE 20 MG/ML VIAL IVP PRN (16:17)
[2023-12-28] VITALS (8 sets, daily range): BP systolic 144–167; BP diastolic 77–95; PULSE 78–114; RESP 17–18; TEMP 98.1–98.9; O2SAT 97–99
[2023-12-28 06:27] LABS: BASOPHILS # (AUTO) 0.1 K/uL (0.00-0.22); BASOPHILS % (AUTO) 0.6 % (0.0-2.0); EOSINOPHILS # (AUTO) 0.3 K/uL (0-0.4); HEMATOCRIT 24.2 % (36-48); HEMOGLOBIN 7.3 g/dL (12.0-16.0); LYMPHOCYTES # (AUTO) 1.5 K/uL (2.5-16.5); LYMPHOCYTES % (AUTO) 18.5 % (20.5-51.1); MEAN CORPUSCULAR HEMOGLOBIN 18 pg (27-31); MEAN CORPUSCULAR HGB CONC 30 g/dL (33-37); MEAN CORPUSCULAR VOLUME 58.9 fL (80-94); MONOCYTES # (AUTO) 0.8 K/uL (0.8-1.0); MONOCYTES % (AUTO) 10.1 % (1.7-9.3); NEUTROPHILS # (AUTO) 5.5 K/uL (1.8-7.7); NEUTROPHILS % (AUTO) 66.8 % (42.2-75.2); PLATELET COUNT (AUTO) 402 K/uL (140-450); RED CELL DISTRIBUTION WIDTH 23.6 % (11.6-13.7); WHITE BLOOD COUNT (AUTO) 8.3 K/uL (4.8-10.8)
[2023-12-28 06:36] LABS: ALBUMIN 2.9 g/dL (3.4-5.0); ANION GAP 14.1 (8-16); CALCIUM 8.5 mg/dL (8.5-10.1); CARBON DIOXIDE 23.3 mmol/L (21-32); CREATININE 0.6 mg/dL (0.6-1.3); POTASSIUM 3.4 mmol/L (3.5-5.1); TOTAL BILIRUBIN 0.2 mg/dL (0.0-1.0); TOTAL PROTEIN, SERUM 7.9 g/dL (6.4-8.2)
[2023-12-28] MEDS: fentaNYL citrate 0.05 MG/ML VIAL ONE (07:43)
[2023-12-28] MEDS: diphenhydrAMINE 50 MG/ML VIAL ONE (07:43)
[2023-12-28] MEDS: MIDAZOLAM 5 MG/5 ML VIAL ONE (07:44)
[2023-12-28] MEDS: MIDAZOLAM 5 MG/5 ML VIAL IV ONE (08:09)
[2023-12-28] MEDS: fentaNYL citrate 0.05 MG/ML VIAL IVP ONE (08:10)
[2023-12-28] MEDS: diphenhydrAMINE 50 MG/ML VIAL IVP ONE (08:12)
[2023-12-28] MEDS ORDERED: SUCR1TAB6 PO (10:27)
[2023-12-28] MEDS ORDERED: PANT40EC56 PO (10:27)
[2023-12-28] MEDS ORDERED: MEDR10TA33 PO (10:27)
[2023-12-28] MEDS ORDERED: ACET-9535 PO (10:38)
[2024-01-11] MEDS ORDERED: ACET-8905 PO (09:45)
[2024-01-11] MEDS ORDERED: MEDR10TA PO (09:45)
[2024-01-11] MEDS ORDERED: DOCU-299 PO (10:33)
== END 2023-12-28 13:45 | disposition home or self-care (01) | DRG 241 ==
LOC: MED 00:05 → MTU 01:49 → MMU 06:31 → MTU 06:46
PROVIDERS: ADMIT Student in an Organized Health Care Education/Training Program; ATTEND Student in an Organized Health Care Education/Training Program
PROC: 30233N1 Transfusion of Nonautologous Red Blood Cells into Peripheral Vein, Percutaneous Approach (ICD-10-PCS; principal; 2023-12-26)
PROC: 0DJD8ZZ Inspection of Lower Intestinal Tract, Via Natural or Artificial Opening Endoscopic (ICD-10-PCS; 2023-12-28)
PROC: 0DB78ZX Excision of Stomach, Pylorus, Via Natural or Artificial Opening Endoscopic, Diagnostic (ICD-10-PCS; 2023-12-28 08:00)
DX: K25.9 Gastric ulcer, unspecified as acute or chronic, without hemorrhage or perforation (principal); R65.10 Systemic inflammatory response syndrome (SIRS) of non-infectious origin without acute organ dysfunction; E44.0 Moderate protein-calorie malnutrition; D62 Acute posthemorrhagic anemia; N93.9 Abnormal uterine and vaginal bleeding, unspecified; K64.8 Other hemorrhoids; I10 Essential (primary) hypertension; J45.909 Unspecified asthma, uncomplicated; N92.0 Excessive and frequent menstruation with regular cycle; T39.395A Adverse effect of other nonsteroidal anti-inflammatory drugs [NSAID], initial encounter; E66.9 Obesity, unspecified; Z80.1 Family history of malignant neoplasm of trachea, bronchus and lung; Z82.49 Family history of ischemic heart disease and other diseases of the circulatory system; Z68.31 Body mass index [BMI] 31.0-31.9, adult
CPT/HCPCS: 36415; 36430; 71045; 76700; 80048; 80053; 80076; 81001; 82272; 82728; 83540; 83690; 84443; 85025; 85610; 85730; 86886; 86900; 86901; 86920; 87081; 87086; 88305; 88312; 88313; 88342; 93005; 96365; 96375; 99291; C9113; J0360; J0696; J1170; J1200; J2001; J2250; J2270; J2405; J2916; J3010; J3480; J7030; P9016; Q0092; Q0163

== ENCOUNTER 2024-02-04 23:35 | Emergency (ER) | payer MEDICAID ==
[~2024-02-04] VITALS: Ht 160 cm; Wt 81.6 kg
[~2024-02-04 23:35] MED LIST changes: +ACET-8905 PO; -AMLO5TAB PO; -AMOX500C25 PO; -CLAR500T99 PO; +DOCU-299 PO; -HYDR-4004 PO; -LACT1.4C PO; +MEDR10TA PO; -METR500T1 PO; +SUCR1TAB6 PO
[2024-02-05] VITALS: BP 132/85; PULSE 98; RESP 18; TEMP 99.3; O2SAT 100
[2024-02-05] MEDS: MORPHINE SULFATE 4 MG/ML SYR IM ONE (00:30)
[2024-02-05] MEDS ORDERED: DICYCLOMINE HCL LIQUID 10 MG/5 ML UDC ONE (00:38)
[2024-02-05] MEDS ORDERED: ALUMINUM HYD/MAG/SIMETHICONE 30 ML UDC ONE (00:38)
[2024-02-05] MEDS: DICYCLOMINE HCL LIQUID 20 MG, ALUMINUM HYD/MAG/SIMETHICONE 30 ML, LIDOCAINE VISCOUS 2% ... PO ONE (00:44)
[2024-02-05 00:45] LABS: FLU A ANTIGEN negative (NEGATIVE); FLU B ANTIGEN NEGATIVE (NEGATIVE)
[2024-02-05 01:05] LABS: CARBON DIOXIDE 25.3 mmol/L (21-32); POTASSIUM 3.3 mmol/L (3.5-5.1)
[2024-02-05 01:15] LABS: BILIRUBIN,DIRECT 0.1 mg/dL (0.0-0.3); TOTAL BILIRUBIN 0.3 mg/dL (0.0-1.0); TOTAL PROTEIN, SERUM 8.1 g/dL (6.4-8.2)
[2024-02-05 01:16] LABS: ALBUMIN 3.6 g/dL (3.4-5.0)
[2024-02-05 01:32] LABS: BASOPHILS # (AUTO) 0.1 K/uL (0.00-0.22); BASOPHILS % (AUTO) 0.5 % (0.0-2.0); EOSINOPHILS # (AUTO) 0.3 K/uL (0-0.4); EOSINOPHILS % (AUTO) 1.9 % (0.0-4.0); HEMATOCRIT 29.5 % (36-48); HEMOGLOBIN 8.9 g/dL (12.0-16.0); LYMPHOCYTES # (AUTO) 1.8 K/uL (2.5-16.5); MEAN CORPUSCULAR HEMOGLOBIN 20 pg (27-31); MEAN CORPUSCULAR HGB CONC 30 g/dL (33-37); MEAN CORPUSCULAR VOLUME 67.2 fL (80-94); MONOCYTES # (AUTO) 1.4 K/uL (0.8-1.0); MONOCYTES % (AUTO) 10.6 % (1.7-9.3); NEUTROPHILS # (AUTO) 10.1 K/uL (1.8-7.7); PLATELET COUNT (AUTO) 325 K/uL (140-450); RED BLOOD CELL COUNT(AUTO) 4.39 MIL/uL (4.20-5.40); RED CELL DISTRIBUTION WIDTH 30.8 % (11.6-13.7); WHITE BLOOD COUNT (AUTO) 13.7 K/uL (4.8-10.8)
[2024-02-05 02:23] VITALS: BP 125/74; PULSE 85; RESP 18; O2SAT 100
== END 2024-02-05 02:24 | disposition home or self-care (01) ==
LOC: MED 23:35
DX: K25.9 Gastric ulcer, unspecified as acute or chronic, without hemorrhage or perforation (principal); Z20.822 Contact with and (suspected) exposure to COVID-19; D50.9 Iron deficiency anemia, unspecified; I10 Essential (primary) hypertension; Z79.899 Other long term (current) drug therapy
CPT/HCPCS: 36415; 80048; 80076; 83690; 85025; 87081; 93005; 99284

== ENCOUNTER 2024-02-28 02:39 | Emergency (ER) | payer MEDICAID ==
[~2024-02-28] VITALS: Ht 157.5 cm; Wt 83.9 kg
[2024-02-28 02:50] VITALS: BP 155/96; PULSE 110; RESP 18; TEMP 98.2; O2SAT 100
[2024-02-28] MEDS: FAMOTIDINE 20 MG/2 ML VIAL IVP ONE (04:03)
[2024-02-28] MEDS: ALUMINUM HYD/MAG/SIMETHICONE 30 ML UDC PO ONE (04:03)
[2024-02-28 05:12] LABS: BASOPHILS # (AUTO) 0.1 K/uL (0.00-0.22); BASOPHILS % (AUTO) 1.2 % (0.0-2.0); EOSINOPHILS # (AUTO) 0.7 K/uL (0-0.4); EOSINOPHILS % (AUTO) 9.7 % (0.0-4.0); HEMATOCRIT 29.1 % (36-48); LYMPHOCYTES # (AUTO) 2.1 K/uL (2.5-16.5); LYMPHOCYTES % (AUTO) 30.2 % (20.5-51.1); MEAN CORPUSCULAR HEMOGLOBIN 20 pg (27-31); MEAN CORPUSCULAR HGB CONC 31 g/dL (33-37); MEAN CORPUSCULAR VOLUME 65.5 fL (80-94); MONOCYTES # (AUTO) 0.7 K/uL (0.8-1.0); MONOCYTES % (AUTO) 10.1 % (1.7-9.3); NEUTROPHILS # (AUTO) 3.4 K/uL (1.8-7.7); NEUTROPHILS % (AUTO) 48.8 % (42.2-75.2); PLATELET COUNT (AUTO) 481 K/uL (140-450); RED BLOOD CELL COUNT(AUTO) 4.45 MIL/uL (4.20-5.40); RED CELL DISTRIBUTION WIDTH 26.1 % (11.6-13.7); WHITE BLOOD COUNT (AUTO) 6.9 K/uL (4.8-10.8)
[2024-02-28 05:23] LABS: INR 0.98 (0.8-1.2); PARTIAL THROMBOPLASTIN TIME 25.4 secs (22-35.6); PROTHROMBIN TIME 10.3 secs (10.8-13.4)
[2024-02-28 05:26] LABS: ALBUMIN 3.6 g/dL (3.4-5.0); ANION GAP 15.9 (8-16); CALCIUM 8.3 mg/dL (8.5-10.1); CARBON DIOXIDE 22.5 mmol/L (21-32); CREATININE 0.7 mg/dL (0.6-1.3); POTASSIUM 3.4 mmol/L (3.5-5.1); TOTAL BILIRUBIN 0.1 mg/dL (0.0-1.0); TOTAL PROTEIN, SERUM 8.2 g/dL (6.4-8.2)
[2024-02-28 05:31] LABS: APPEARANCE,URINE SL CLOUDY (CLEAR); BILIRUBIN,URINE NEGATIVE (NEGATIVE); BLOOD, URINE 3+ (NEGATIVE); COLOR,URINE RED (YELLOW); LEUKOCYTE ESTERASE ,URINE NEGATIVE (NEGATIVE); NITRITE, URINE NEGATIVE (NEGATIVE); PROTEIN,URINE TRACE (NEGATIVE); UGLUCOSE NEGATIVE (NEGATIVE); UROBILINOGEN,URINE 0.2 EU/dL (0.2 - 1)
[2024-02-28 05:41] LABS: AMPHETAMINE, URINE NEGATIVE ng/ml (NEG <=1000); BARBITURATE, URINE NEGATIVE ng/ml (NEG <=200)
[2024-02-28 05:42] LABS: BENZODIAZEPINE, URINE NEGATIVE ng/mL (NEG <=200); CANNABINOID, URINE NEGATIVE ng/mL (NEG <=50); COCAINE, URINE NEGATIVE ng/mL (NEG <=300); OPIATE, URINE POSITIVE ng/mL (NEG <=2000); PHENCYCLIDINE SCREEN,URINE NEGATIVE ng/mL (NEG <=25)
[2024-02-28 05:45] LABS: BACTERIA,URINE 0-2 /HPF (None Seen); MUCUS,URINE None Seen /LPF (None Seen); SQUAMOUS EPITHELIAL CELL,UR 0-3 (FEW) /LPF (0-3 (FEW)); WBC,URINE 0 /HPF (0-5)
[2024-02-28] MEDS ORDERED: FERR325E14 PO (06:30)
[2024-02-28] MEDS ORDERED: ACET-10509 PO (06:30)
[2024-02-28 06:50] VITALS: BP 120/81; PULSE 94; RESP 14; O2SAT 100
[2024-02-28] MEDS: HYDROcodone/APAP 5/325 MG 1 TAB TAB PO ONE (06:50)
== END 2024-02-28 06:50 | disposition home or self-care (01) ==
LOC: MED 02:39
DX: D25.9 Leiomyoma of uterus, unspecified (principal); K29.70 Gastritis, unspecified, without bleeding; D50.9 Iron deficiency anemia, unspecified; N92.0 Excessive and frequent menstruation with regular cycle; I10 Essential (primary) hypertension; Z79.899 Other long term (current) drug therapy
CPT/HCPCS: 36415; 76856; 80053; 80305; 81001; 81025; 83690; 84703; 85025; 85610; 85730; 96374; 99285; J3490

== ENCOUNTER 2024-04-06 01:40 | Emergency (ER) | payer MEDICAID ==
[~2024-04-06] VITALS: Ht 160 cm; Wt 83.0 kg
[~2024-04-06 01:40] MED LIST changes: +ACET-10509 PO; +FERR325E14 PO
[2024-04-06 01:57] VITALS: BP 118/78; PULSE 67; RESP 18; TEMP 98.7; O2SAT 95
[2024-04-06 03:23] LABS: BASOPHILS # (AUTO) 0.1 K/uL (0.00-0.22); BASOPHILS % (AUTO) 1.1 % (0.0-2.0); CALCIUM 9.2 mg/dL (8.5-10.1); CARBON DIOXIDE 25.8 mmol/L (21-32); CREATININE 0.8 mg/dL (0.6-1.3); EOSINOPHILS # (AUTO) 0.8 K/uL (0-0.4); EOSINOPHILS % (AUTO) 10.7 % (0.0-4.0); HEMOGLOBIN 9.7 g/dL (12.0-16.0); LYMPHOCYTES # (AUTO) 2.5 K/uL (2.5-16.5); LYMPHOCYTES % (AUTO) 33.9 % (20.5-51.1); MEAN CORPUSCULAR HEMOGLOBIN 20 pg (27-31); MEAN CORPUSCULAR HGB CONC 31 g/dL (33-37); MONOCYTES % (AUTO) 13.1 % (1.7-9.3); NEUTROPHILS # (AUTO) 3.1 K/uL (1.8-7.7); NEUTROPHILS % (AUTO) 41.2 % (42.2-75.2); PLATELET COUNT (AUTO) 493 K/uL (140-450); POTASSIUM 3.8 mmol/L (3.5-5.1); RED BLOOD CELL COUNT(AUTO) 4.92 MIL/uL (4.20-5.40); RED CELL DISTRIBUTION WIDTH 20.5 % (11.6-13.7); WHITE BLOOD COUNT (AUTO) 7.5 K/uL (4.8-10.8)
[2024-04-06 03:27] LABS: BILIRUBIN,DIRECT 0.1 mg/dL (0.0-0.3); TOTAL BILIRUBIN 0.2 mg/dL (0.0-1.0); TOTAL PROTEIN, SERUM 8.6 g/dL (6.4-8.2)
[2024-04-06] MEDS: ALUMINUM HYD/MAG/SIMETHICONE 30 ML UDC PO ONE (03:38)
[2024-04-06] MEDS: MORPHINE SULFATE 4 MG/ML SYR IVP ONE (04:05)
[2024-04-06] MEDS: KETOROLAC 30 MG/ML VIAL IVP ONE (04:06)
[2024-04-06] MEDS: ONDANSETRON 4 MG/2 ML VIAL IVP ONE (04:06)
[2024-04-06] MEDS: NACL 0.9% 1,000 ML IV ONE (04:08)
[2024-04-06 05:25] LABS: APPEARANCE,URINE CLEAR (CLEAR); BILIRUBIN,URINE NEGATIVE (NEGATIVE); BLOOD, URINE 3+ (NEGATIVE); COLOR,URINE YELLOW (YELLOW); LEUKOCYTE ESTERASE ,URINE NEGATIVE (NEGATIVE); NITRITE, URINE NEGATIVE (NEGATIVE); PH,URINE 6.5 (5.0-9.0); PROTEIN,URINE NEGATIVE (NEGATIVE); UGLUCOSE NEGATIVE (NEGATIVE); UROBILINOGEN,URINE 0.2 EU/dL (0.2 - 1)
[2024-04-06] MEDS: FAMOTIDINE 20 MG/2 ML VIAL IVP ONE (05:40)
[2024-04-06 06:10] LABS: BACTERIA,URINE 10-30 (MOD) /HPF (None Seen); MUCUS,URINE 1+ /LPF (None Seen); RBC,URINE 0-5 /HPF (0-5); SQUAMOUS EPITHELIAL CELL,UR 0-3 (FEW) /LPF (0-3 (FEW)); WBC,URINE 0-5 /HPF (0-5)
[2024-04-06] MEDS ORDERED: CEPH-588 PO (06:15)
[2024-04-06] MEDS ORDERED: MIRABULK PO (06:15)
[2024-04-06] MEDS ORDERED: DOCU-299 PO (06:15)
[2024-04-06 06:21] VITALS: BP 124/78; PULSE 68; RESP 18; TEMP 98; O2SAT 95
== END 2024-04-06 06:21 | disposition home or self-care (01) ==
LOC: MED 01:40
DX: N30.00 Acute cystitis without hematuria (principal); D25.9 Leiomyoma of uterus, unspecified; I10 Essential (primary) hypertension; Z79.1 Long term (current) use of non-steroidal anti-inflammatories (NSAID); Z79.899 Other long term (current) drug therapy
CPT/HCPCS: 36415; 74176; 80048; 80076; 81001; 81025; 83690; 84703; 85025; 87086; 96361; 96374; 96375; 99285; J1885; J2270; J2405; J3490; J7030

== ENCOUNTER 2024-06-16 15:59 | Emergency (ER) | payer MEDICAID ==
[~2024-06-16] VITALS: Ht 160 cm; Wt 83.6 kg
[~2024-06-16 15:59] MED LIST changes: +CEPH-588 PO; +MIRABULK PO
[2024-06-16 16:41] VITALS: BP 142/97; PULSE 92; RESP 19; TEMP 98.5; O2SAT 100
[2024-06-16 17:53] LABS: BASOPHILS # (AUTO) 0.1 K/uL (0.00-0.22); BASOPHILS % (AUTO) 0.8 % (0.0-2.0); EOSINOPHILS # (AUTO) 0.4 K/uL (0-0.4); EOSINOPHILS % (AUTO) 6.1 % (0.0-4.0); HEMATOCRIT 33.1 % (36-48); LYMPHOCYTES % (AUTO) 28.5 % (20.5-51.1); MEAN CORPUSCULAR HEMOGLOBIN 20 pg (27-31); MEAN CORPUSCULAR HGB CONC 30 g/dL (33-37); MEAN CORPUSCULAR VOLUME 64.5 fL (80-94); MONOCYTES # (AUTO) 0.7 K/uL (0.8-1.0); MONOCYTES % (AUTO) 10.3 % (1.7-9.3); NEUTROPHILS # (AUTO) 3.7 K/uL (1.8-7.7); NEUTROPHILS % (AUTO) 54.3 % (42.2-75.2); PLATELET COUNT (AUTO) 441 K/uL (140-450); RED BLOOD CELL COUNT(AUTO) 5.13 MIL/uL (4.20-5.40); RED CELL DISTRIBUTION WIDTH 22.5 % (11.6-13.7); WHITE BLOOD COUNT (AUTO) 6.8 K/uL (4.8-10.8)
[2024-06-16 18:15] LABS: ALANINE AMINOTRANSFERASE 28 U/L (12-78); ALBUMIN 3.7 g/dL (3.4-5.0); ALKALINE PHOSPHATASE 79 U/L (50-136); ANION GAP 15.9 (8-16); ASPARTATE AMINOTRANSFERASE 26 U/L (15-37); CALCIUM 9.3 mg/dL (8.5-10.1); CARBON DIOXIDE 23.8 mmol/L (21-32); CHLORIDE 104 mmol/L (98-107); CREATININE 0.8 mg/dL (0.6-1.3); GFR ARICAN-AMERICAN 97 mL/min (>90); GFR NON ARICAN-AMERICAN 80 mL/min (>90); GLUCOSE 80 mg/dL (74-106); LIPASE 43 U/L (16-77); POTASSIUM 3.7 mmol/L (3.5-5.1); SODIUM SERUM 140 mmol/L (136-145); TOTAL BILIRUBIN 0.3 mg/dL (0.0-1.0); TOTAL PROTEIN, SERUM 8.7 g/dL (6.4-8.2); UREA NITROGEN, BLOOD 10 mg/dL (7-18)
[2024-06-16] MEDS ORDERED: METR-435 PO (18:43)
[2024-06-16] MEDS: metroNIDAZOLE 500 MG/NS PREMIX 100 ML IV ONE (18:48)
[2024-06-16] MEDS: MORPHINE SULFATE 4 MG/ML SYR IVP ONE (19:04)
[2024-06-16 21:05] VITALS: BP 140/90; PULSE 90; RESP 18; TEMP 98; O2SAT 99
== END 2024-06-16 21:05 | disposition home or self-care (01) ==
LOC: MED 15:59
DX: A09 Infectious gastroenteritis and colitis, unspecified (principal); I10 Essential (primary) hypertension; Z90.49 Acquired absence of other specified parts of digestive tract; Z98.890 Other specified postprocedural states; Z79.899 Other long term (current) drug therapy
CPT/HCPCS: 36415; 80053; 83690; 84484; 85025; 87040; 93005; 96365; 96375; 99285; J2270; J3490; 96361; 96374; 99284

== ENCOUNTER 2024-07-07 22:35 | Inpatient (IN) | payer MEDICAID ==
[~2024-07-07] VITALS: Ht 160 cm; Wt 79.4 kg
[~2024-07-07 22:35] MED LIST changes: -ACET-10509 PO; +ACET500T99 PO; +METR-435 PO
[2024-07-07 23:10] VITALS: BP 159/90; PULSE 90; RESP 16; TEMP 97.8; O2SAT 100
[2024-07-07 23:40] LABS: BASOPHILS # (AUTO) 0.1 K/uL (0.00-0.22); EOSINOPHILS # (AUTO) 0.2 K/uL (0-0.4); EOSINOPHILS % (AUTO) 2.7 % (0.0-4.0); HEMATOCRIT 35.1 % (36-48); HEMOGLOBIN 10.7 g/dL (12.0-16.0); LYMPHOCYTES # (AUTO) 2.3 K/uL (2.5-16.5); LYMPHOCYTES % (AUTO) 30.4 % (20.5-51.1); MEAN CORPUSCULAR HEMOGLOBIN 20 pg (27-31); MEAN CORPUSCULAR HGB CONC 30 g/dL (33-37); MEAN CORPUSCULAR VOLUME 66.3 fL (80-94); MONOCYTES # (AUTO) 0.6 K/uL (0.8-1.0); MONOCYTES % (AUTO) 8.2 % (1.7-9.3); NEUTROPHILS # (AUTO) 4.4 K/uL (1.8-7.7); NEUTROPHILS % (AUTO) 57.7 % (42.2-75.2); PLATELET COUNT (AUTO) 443 K/uL (140-450); RED CELL DISTRIBUTION WIDTH 21.6 % (11.6-13.7); WHITE BLOOD COUNT (AUTO) 7.7 K/uL (4.8-10.8)
[2024-07-07 23:57] LABS: ANION GAP 17.6 (8-16); CALCIUM 10.2 mg/dL (8.5-10.1); CARBON DIOXIDE 24.7 mmol/L (21-32); CREATININE 0.8 mg/dL (0.6-1.3); POTASSIUM 3.3 mmol/L (3.5-5.1)
[2024-07-08 00:01] LABS: ALBUMIN 4.3 g/dL (3.4-5.0); BILIRUBIN,DIRECT 0.1 mg/dL (0.0-0.3); TOTAL BILIRUBIN 0.2 mg/dL (0.0-1.0); TOTAL PROTEIN, SERUM 9.8 g/dL (6.4-8.2)
[2024-07-08] MEDS: POTASSIUM CHLORIDE 10 MEQ TABER PO ONE (03:21)
[2024-07-08] MEDS: MORPHINE SULFATE 4 MG/ML SYR IVP ONE (03:21)
[2024-07-08] MEDS ORDERED: AMLO10TA PO (03:35)
[2024-07-08] MEDS ORDERED: LISI10TA30 PO (03:35)
[2024-07-08] MEDS ORDERED: LORazepam 1 MG TAB PO PRN (04:15)
[2024-07-08] MEDS ORDERED: KCL 20 MEQ IN 100 mL PREMIX 200 ML IV PRN (04:15)
[2024-07-08] MEDS ORDERED: ONDANSETRON 4 MG/2 ML VIAL IVP PRN (04:15)
[2024-07-08] MEDS ORDERED: MAG SULF 2000 MG/WATER PREMIX 50 ML IV PRN (04:15)
[2024-07-08] MEDS ORDERED: POTASSIUM CHLORIDE 10 MEQ TABER PO PRN (04:15)
[2024-07-08] MEDS ORDERED: MAGNESIUM OXIDE 400 MG TAB PO PRN (04:15)
[2024-07-08] MEDS ORDERED: ACETAMINOPHEN 325 MG TAB PO PRN (04:15)
[2024-07-08] MEDS: diphenhydrAMINE 50 MG/ML VIAL IVP ONE (04:32)
[2024-07-08] MEDS: DEXT 5% /NACL 0.9% 1,000 ML IV SCH ×2 (04:41→19:46)
[2024-07-08] MEDS: HYDROcodone/APAP 5/325 MG 1 TAB TAB PO PRN (04:46)
[2024-07-08 08:00] VITALS: BP 151/91; PULSE 76; RESP 20; TEMP 98; O2SAT 100
[2024-07-08] MEDS: DOCUSATE SODIUM 100 MG GELCAP PO SCH (08:47)
[2024-07-08] MEDS: PANTOPRAZOLE 40 MG INJ VIAL IVP SCH (08:47)
[2024-07-08] MEDS ORDERED: hydrALAZINE 25 MG TAB PO PRN (12:40)
[2024-07-08] MEDS ORDERED: HYDROmorphone 1 MG/ML AMP IVP PRN (13:10)
[2024-07-08 13:30] LABS: BASOPHILS % (AUTO) 1.1 % (0.0-2.0); EOSINOPHILS # (AUTO) 0.3 K/uL (0-0.4); EOSINOPHILS % (AUTO) 7.9 % (0.0-4.0); HEMATOCRIT 30.8 % (36-48); HEMOGLOBIN 9.2 g/dL (12.0-16.0); LYMPHOCYTES # (AUTO) 1.9 K/uL (2.5-16.5); LYMPHOCYTES % (AUTO) 42.9 % (20.5-51.1); MEAN CORPUSCULAR HEMOGLOBIN 20 pg (27-31); MEAN CORPUSCULAR HGB CONC 30 g/dL (33-37); MEAN CORPUSCULAR VOLUME 67.6 fL (80-94); MONOCYTES # (AUTO) 0.6 K/uL (0.8-1.0); MONOCYTES % (AUTO) 14.8 % (1.7-9.3); NEUTROPHILS # (AUTO) 1.4 K/uL (1.8-7.7); NEUTROPHILS % (AUTO) 33.3 % (42.2-75.2); PLATELET COUNT (AUTO) 353 K/uL (140-450); RED BLOOD CELL COUNT(AUTO) 4.55 MIL/uL (4.20-5.40); RED CELL DISTRIBUTION WIDTH 20.9 % (11.6-13.7); WHITE BLOOD COUNT (AUTO) 4.3 K/uL (4.8-10.8)
[2024-07-08] MEDS: HYDROmorphone 1 MG/ML AMP IVP PRN (13:30)
[2024-07-08 14:14] LABS: ALBUMIN 3.2 g/dL (3.4-5.0); ANION GAP 17.7 (8-16); CARBON DIOXIDE 21.1 mmol/L (21-32); CREATININE 0.8 mg/dL (0.6-1.3); POTASSIUM 3.8 mmol/L (3.5-5.1); TOTAL BILIRUBIN 0.4 mg/dL (0.0-1.0); TOTAL PROTEIN, SERUM 7.7 g/dL (6.4-8.2)
[2024-07-08 16:00] VITALS: BP 95/64; PULSE 72; RESP 20; TEMP 97.5; O2SAT 97
[2024-07-08 18:03] LABS: AMPHETAMINE, URINE NEGATIVE ng/ml (NEG <=1000); BARBITURATE, URINE NEGATIVE ng/ml (NEG <=200); BENZODIAZEPINE, URINE NEGATIVE ng/mL (NEG <=200); CANNABINOID, URINE NEGATIVE ng/mL (NEG <=50); COCAINE, URINE NEGATIVE ng/mL (NEG <=300); OPIATE, URINE POSITIVE ng/mL (NEG <=2000); PHENCYCLIDINE SCREEN,URINE NEGATIVE ng/mL (NEG <=25)
[2024-07-08 19:30] VITALS: BP 127/85; PULSE 83; RESP 18; TEMP 98.2; O2SAT 100
[2024-07-08 20:00] VITALS: PULSE 83; RESP 18; O2SAT 100
[2024-07-08] MEDS: SUPREP BOWEL PREP KIT 354 ML SOLN.RECON PO SCH (20:50)
[2024-07-09 03:37] VITALS: BP 135/86; PULSE 81; RESP 18; TEMP 97.4; O2SAT 99
[2024-07-09 07:08] LABS: BASOPHILS % (AUTO) 0.4 % (0.0-2.0); EOSINOPHILS # (AUTO) 0.3 K/uL (0-0.4); HEMATOCRIT 30.9 % (36-48); HEMOGLOBIN 9.3 g/dL (12.0-16.0); LYMPHOCYTES # (AUTO) 1.8 K/uL (2.5-16.5); LYMPHOCYTES % (AUTO) 29.3 % (20.5-51.1); MEAN CORPUSCULAR HEMOGLOBIN 20 pg (27-31); MEAN CORPUSCULAR HGB CONC 30 g/dL (33-37); MEAN CORPUSCULAR VOLUME 66.5 fL (80-94); MONOCYTES # (AUTO) 0.5 K/uL (0.8-1.0); MONOCYTES % (AUTO) 8.7 % (1.7-9.3); NEUTROPHILS # (AUTO) 3.5 K/uL (1.8-7.7); NEUTROPHILS % (AUTO) 56.6 % (42.2-75.2); PLATELET COUNT (AUTO) 375 K/uL (140-450); RED BLOOD CELL COUNT(AUTO) 4.64 MIL/uL (4.20-5.40); RED CELL DISTRIBUTION WIDTH 20.3 % (11.6-13.7); WHITE BLOOD COUNT (AUTO) 6.2 K/uL (4.8-10.8)
[2024-07-09 07:20] LABS: ALBUMIN 3.3 g/dL (3.4-5.0); ANION GAP 15.1 (8-16); CALCIUM 9.1 mg/dL (8.5-10.1); CARBON DIOXIDE 22.5 mmol/L (21-32); CREATININE 0.8 mg/dL (0.6-1.3); POTASSIUM 3.6 mmol/L (3.5-5.1); TOTAL BILIRUBIN 0.4 mg/dL (0.0-1.0); TOTAL PROTEIN, SERUM 7.7 g/dL (6.4-8.2)
[2024-07-09 08:00] VITALS: BP 135/86; PULSE 78; PULSE 81; RESP 18; TEMP 97.4; O2SAT 100; O2SAT 99
[2024-07-09 12:00] VITALS: BP 122/79; PULSE 78; RESP 18; TEMP 97.9; O2SAT 100
[2024-07-09] MEDS: MIDAZOLAM 2 MG/2 ML VIAL IVP ONE (14:29)
[2024-07-09] MEDS: fentaNYL citrate 0.05 MG/ML VIAL IVP ONE (14:31)
[2024-07-09] MEDS: diphenhydrAMINE 50 MG/ML VIAL IVP ONE (14:40)
[2024-07-09] MEDS: diphenhydrAMINE 50 MG/ML VIAL ONE (14:47)
[2024-07-09] MEDS: MIDAZOLAM 5 MG/5 ML VIAL ONE (14:48)
[2024-07-09] MEDS: LIDOCAINE 2% 100 MG/5 ML UJET TP ONE (14:48)
[2024-07-09] MEDS: fentaNYL citrate 0.05 MG/ML VIAL ONE (14:48)
[2024-07-09 16:00] VITALS: BP 142/92; PULSE 91; RESP 18; TEMP 97.2; O2SAT 100
[2024-07-09 20:00] VITALS: BP 139/92; PULSE 86; RESP 18; TEMP 97.8; O2SAT 100
[2024-07-09] MEDS: ZOLPIDEM 5 MG TAB PO PRN (20:52)
[2024-07-10 04:00] VITALS: BP 142/92; PULSE 78; RESP 18; TEMP 97.9; O2SAT 100
[2024-07-10 06:24] LABS: BASOPHILS % (AUTO) 0.5 % (0.0-2.0); EOSINOPHILS # (AUTO) 0.3 K/uL (0-0.4); EOSINOPHILS % (AUTO) 5.1 % (0.0-4.0); HEMATOCRIT 30.2 % (36-48); HEMOGLOBIN 9.2 g/dL (12.0-16.0); LYMPHOCYTES # (AUTO) 1.8 K/uL (2.5-16.5); MEAN CORPUSCULAR HEMOGLOBIN 20 pg (27-31); MEAN CORPUSCULAR HGB CONC 31 g/dL (33-37); MEAN CORPUSCULAR VOLUME 66.3 fL (80-94); MONOCYTES # (AUTO) 0.5 K/uL (0.8-1.0); MONOCYTES % (AUTO) 9.1 % (1.7-9.3); NEUTROPHILS # (AUTO) 2.9 K/uL (1.8-7.7); NEUTROPHILS % (AUTO) 52.3 % (42.2-75.2); PLATELET COUNT (AUTO) 392 K/uL (140-450); RED BLOOD CELL COUNT(AUTO) 4.55 MIL/uL (4.20-5.40); RED CELL DISTRIBUTION WIDTH 20.5 % (11.6-13.7); WHITE BLOOD COUNT (AUTO) 5.5 K/uL (4.8-10.8)
[2024-07-10 07:14] LABS: ANISOCYTOSIS 2+; OVALOCYTES 1+
[2024-07-10 07:15] LABS: ALBUMIN 3.4 g/dL (3.4-5.0); ANION GAP 15.2 (8-16); CALCIUM 9.1 mg/dL (8.5-10.1); CARBON DIOXIDE 22.4 mmol/L (21-32); CREATININE 0.8 mg/dL (0.6-1.3); POTASSIUM 3.6 mmol/L (3.5-5.1); TOTAL BILIRUBIN 0.2 mg/dL (0.0-1.0); TOTAL PROTEIN, SERUM 7.7 g/dL (6.4-8.2)
[2024-07-10 08:00] VITALS: BP 142/92; PULSE 78; PULSE 80; RESP 18; TEMP 97.9; O2SAT 100; O2SAT 98
[2024-07-10 12:00] VITALS: BP 130/78; PULSE 80; RESP 18; TEMP 97.9; O2SAT 98
[2024-07-10] MEDS ORDERED: HYD1C TP (12:58)
[2024-07-10] MEDS ORDERED: DOCU-299 PO (12:58)
[2024-07-10] MEDS ORDERED: MEDR10TA PO (13:19)
[2024-07-10 17:09] VITALS: BP 128/73; PULSE 89; RESP 18; TEMP 97.9; O2SAT 98
== END 2024-07-10 17:40 | disposition home or self-care (01) | DRG 241 ==
LOC: MED 22:35 → MTU 07-08 04:04
PROVIDERS: ADMIT Hospitalist; ATTEND Hospitalist
PROC: 0DB58ZX Excision of Esophagus, Via Natural or Artificial Opening Endoscopic, Diagnostic (ICD-10-PCS; 2024-07-09)
PROC: 0DB78ZX Excision of Stomach, Pylorus, Via Natural or Artificial Opening Endoscopic, Diagnostic (ICD-10-PCS; principal; 2024-07-09 15:55)
PROC: 0DJD8ZZ Inspection of Lower Intestinal Tract, Via Natural or Artificial Opening Endoscopic (ICD-10-PCS; 2024-07-09 15:55)
DX: K29.01 Acute gastritis with bleeding (principal); A04.72 Enterocolitis due to Clostridium difficile, not specified as recurrent; D62 Acute posthemorrhagic anemia; I10 Essential (primary) hypertension; Z79.899 Other long term (current) drug therapy; Z88.8 Allergy status to other drugs, medicaments and biological substances
CPT/HCPCS: 36415; 71045; 80048; 80053; 80076; 80305; 83540; 83690; 85025; 85379; 86886; 86900; 86901; 87070; 87081; 88305; 88312; 88313; 88342; 93005; 96374; 96375; 99285; J1170; J1200; J2250; J2270; J2470; J3010; Q0163

== ENCOUNTER 2024-09-09 23:15 | Emergency (ER) | payer MEDICAID ==
[~2024-09-09] VITALS: Ht 160 cm; Wt 81.6 kg
[~2024-09-09 23:15] MED LIST changes: -ACET-8905 PO; -ACET500T99 PO; +AMLO10TA PO; -CEPH-588 PO; -FERR325E14 PO; +HYD1C TP; +LISI10TA30 PO; -METR-435 PO; -MIRABULK PO; -PANT40EC56 PO; -SUCR1TAB6 PO
[2024-09-09 23:28] VITALS: BP 137/76; PULSE 103; RESP 16; TEMP 98; O2SAT 98
[2024-09-10 00:10] VITALS: O2SAT 99
[2024-09-10] MEDS: KETOROLAC 60 MG/2 ML VIAL IM ONE (00:59)
[2024-09-10] MEDS: MORPHINE SULFATE 4 MG/ML SYR IM ONE (01:40)
[2024-09-10] MEDS ORDERED: ACET-8905 PO (01:59)
[2024-09-10 02:07] VITALS: BP 137/76; PULSE 103; RESP 16; TEMP 98; O2SAT 99
== END 2024-09-10 02:09 | disposition home or self-care (01) ==
LOC: MED 23:15
DX: G43.909 Migraine, unspecified, not intractable, without status migrainosus (principal); I10 Essential (primary) hypertension; Z90.49 Acquired absence of other specified parts of digestive tract; Z98.890 Other specified postprocedural states; Z79.899 Other long term (current) drug therapy
CPT/HCPCS: 96372; 99284; J1885; J2270